=== PATIENT | female | born 1945 | race Caucasian/White ===

== ENCOUNTER 2017-10-09 12:26 | Inpatient (IN) | payer MEDICARE, MEDICAID ==
[~2017-10-09] VITALS: Ht 157.5 cm; Wt 111.4 kg
[~2017-10-09 12:26] MED LIST: ADV50250 IH; HYDR25TA4 PO; IMD30T PO; LOP25T PO; MAGN400C PO; NITR0.4T51 SL; POTA20TA19 PO; SERT25TA PO
[2017-10-09] MEDS ORDERED: nitroGLYCERIN 0.4mg SUBLingual tab SL PRN ×2 (12:50→15:50)
[2017-10-09] MEDS ORDERED: aspirin 325mg tablet PO ONE (12:50)
[2017-10-09 13:08] LABS: BASOPHILS % (AUTO) 0.4 % (0-1); EOSINOPHILS # (AUTO) 0.2 X10'3 (0-0.9); HEMATOCRIT 40.4 % (35.0-45.0); HEMOGLOBIN 14.1 g/dl (12.0-16.0); LYMPHOCYTES # (AUTO) 2.9 X10'3 (1.1-4.8); LYMPHOCYTES % (AUTO) 36.4 % (21-51); MEAN CORPUSCULAR HEMOGLOBIN 33.8 PG (27.0-31.0); MEAN CORPUSCULAR VOLUME 96.6 FL (78-98); MEAN PLATELET VOLUME 5.8 FL (7.4-10.4); MONOCYTES # (AUTO) 0.6 X10'3 (0-0.9); MONOCYTES % (AUTO) 7.3 % (2-12); NEUTROPHILS # (AUTO) 4.2 X10'3 (1.8-7.7); NEUTROPHILS % (AUTO) 53.9 % (42-75); PLATELET COUNT 202 X10'3 (140-440); RED BLOOD COUNT 4.18 X10'6 (4.20-5.60); RED CELL DISTRIBUTION WIDTH 13.7 % (11.5-14.5); WHITE BLOOD COUNT 7.9 X10'3 (4.5-11.0)
[2017-10-09 13:23] LABS: ALANINE AMINOTRANSFERASE 20 U/L (12-78); ALBUMIN 3.1 G/DL (3.4-5.0); ALBUMIN/GLOBULIN RATIO 0.8 (1.1-1.5); ALKALINE PHOSPHATASE 180 IU/L (46-116); ANION GAP 7 (8-16); ASPARTATE AMINO TRANSFERASE 43 U/L (10-37); BILIRUBIN,TOTAL 1.3 MG/DL (0.1-1.0); BLOOD UREA NITROGEN 12 MG/DL (7-18); BUN/CREATININE RATIO 17.4 (6.6-38.0); CALCIUM 8.7 MG/DL (8.5-10.1); CHLORIDE 106 MMOL/L (99-107); CREATININE 0.69 MG/DL (0.40-0.90); GLUCOSE 90 MG/DL (70-104); MAGNESIUM 1.4 MG/DL (1.5-2.4); POTASSIUM 3.5 MMOL/L (3.5-5.1); SODIUM 142 MMOL/L (135-145); TOTAL CARBON DIOXIDE 28.6 MMOL/L (24-32); TOTAL PROTEIN 6.9 G/DL (6.4-8.2); eGFR 84 ML/MIN
[2017-10-09] MEDS ORDERED: metoprolol tartrate 50mg tablet PO ONE (13:30)
[2017-10-09] MEDS ORDERED: isosorbide dinitrate 30mg tablet PO ONE (13:30)
[2017-10-09] MEDS ORDERED: LORazepam 1 MG tablet PO ONE (13:30)
[2017-10-09] MEDS ORDERED: magnesium 2GM in 50ml NS 50 ML IV ONE (13:55)
[2017-10-09] MEDS ORDERED: HYDROcodone/acetaminophen 10/325mg tab PO ONE (15:25)
[2017-10-09] MEDS ORDERED: TRAM50TA2 PO (15:34)
[2017-10-09] MEDS ORDERED: ipratropium/albuterol 3ml nebule NEB PRN (15:50)
[2017-10-09] MEDS ORDERED: acetaminophen 325mg tablet PO PRN (15:50)
[2017-10-09] MEDS ORDERED: ondansetron/PF 4mg/2ml inj IV PRN (15:50)
[2017-10-09] MEDS ORDERED: metoprolol tartrate 1mg/ml inj IV PRN (15:50)
[2017-10-09] MEDS ORDERED: regadenoson 0.4mg/5ml syringe IV ONE (15:50)
[2017-10-09] MEDS ORDERED: magnesium 4gm in 100ml NS 100 ML IV PRN (15:50)
[2017-10-09] MEDS ORDERED: aminophylline 250mg/10ml inj. IV PRN (15:50)
[2017-10-09] MEDS ORDERED: magnesium 2GM in 50ml NS 50 ML IV PRN (15:50)
[2017-10-09] MEDS ORDERED: potassium Cl 40MEQ/NS 500ml 500 ML IV PRN ×2 (15:50)
[2017-10-09] MEDS ORDERED: mag hydrox/Alum hydrox/simeth 30ml oral suspension PO PRN (15:50)
[2017-10-09] MEDS ORDERED: potassium Cl 20 mEq SR tablet PO PRN ×2 (15:50)
[2017-10-09] MEDS ORDERED: magnesium hydroxide 30ml (MOM) UD suspension PO PRN (15:50)
[2017-10-09] MEDS ORDERED: traMADol 50MG tablet PO PRN (16:55)
[2017-10-09] MEDS ORDERED: nitroGLYCERIN 0.4mg SUBLingual tab SL SCH (16:55)
[2017-10-09 17:30] VITALS: BP 141/75
[2017-10-09 19:00] VITALS: BP 117/67
[2017-10-09] MEDS: magnesium oxide 400mg tablet PO SCH (20:00)
[2017-10-09 23:00] VITALS: BP 115/58
[2017-10-10] VITALS (14 sets, daily range): BP systolic 93–131; BP diastolic 45–69
[2017-10-10 01:36] LABS: BASOPHILS # (AUTO) 0.1 X10'3 (0-0.2); BASOPHILS % (AUTO) 0.8 % (0-1); EOSINOPHILS # (AUTO) 0.2 X10'3 (0-0.9); EOSINOPHILS % (AUTO) 3.2 % (0-6); LYMPHOCYTES # (AUTO) 2.9 X10'3 (1.1-4.8); LYMPHOCYTES % (AUTO) 39.6 % (21-51); MONOCYTES # (AUTO) 0.7 X10'3 (0-0.9); NEUTROPHILS # (AUTO) 3.4 X10'3 (1.8-7.7); NEUTROPHILS % (AUTO) 46.4 % (42-75); WHITE BLOOD COUNT 7.3 X10'3 (4.5-11.0)
[2017-10-10 01:45] LABS: ALANINE AMINOTRANSFERASE 21 U/L (12-78); ALBUMIN 2.8 G/DL (3.4-5.0); ALBUMIN/GLOBULIN RATIO 0.7 (1.1-1.5); ALKALINE PHOSPHATASE 171 IU/L (46-116); ANION GAP 7 (8-16); ASPARTATE AMINO TRANSFERASE 38 U/L (10-37); BILIRUBIN,TOTAL 1.3 MG/DL (0.1-1.0); BLOOD UREA NITROGEN 14 MG/DL (7-18); BUN/CREATININE RATIO 19.7 (6.6-38.0); CALCIUM 8.6 MG/DL (8.5-10.1); CHLORIDE 105 MMOL/L (99-107); CREATININE 0.71 MG/DL (0.40-0.90); GLUCOSE 111 MG/DL (70-104); POTASSIUM 3.5 MMOL/L (3.5-5.1); SODIUM 141 MMOL/L (135-145); TOTAL CARBON DIOXIDE 28.8 MMOL/L (24-32); TOTAL PROTEIN 6.6 G/DL (6.4-8.2); eGFR 82 ML/MIN
[2017-10-10 01:48] LABS: CHOL/HDL RATIO 2.1 (0.00-4.99); CHOLESTEROL 165 MG/DL (0-200); HDL CHOLESTEROL 80 MG/DL (35-60); LDL CHOLESTEROL 81 MG/DL (50-100); MAGNESIUM 1.9 MG/DL (1.5-2.4); TRIGLYCERIDES 58 MG/DL (20-135)
[2017-10-10] MEDS ORDERED: enoxaparin 40mg/0.4ml syringe SQ SCH (08:00)
[2017-10-10] MEDS: K and/or MAG REPLACEMENT MC SCH (08:00)
[2017-10-10] MEDS: isosorbide mononitrate 30mg tab.SR.24H PO SCH ×2 (08:00→12:40)
[2017-10-10] MEDS: metoprolol tartrate 25mg tablet PO SCH (08:19)
[2017-10-10] MEDS: magnesium oxide 400mg tablet PO SCH ×2 (08:19→20:00)
[2017-10-10] MEDS: sertraline 50mg tablet PO SCH (08:19)
[2017-10-10] MEDS ORDERED: regadenoson 0.4mg/5ml syringe IV ONE (08:33)
[2017-10-10] MEDS ORDERED: aminophylline inj. 0 ML IV ONE (08:33)
[2017-10-10 09:41] LABS: HEMATOCRIT 38.8 % (35.0-45.0); HEMOGLOBIN 13.4 g/dl (12.0-16.0); RED BLOOD COUNT 3.99 X10'6 (4.20-5.60)
[2017-10-10 09:42] LABS: MEAN CORPUSCULAR VOLUME 97.3 FL (78-98)
[2017-10-10 09:43] LABS: MEAN CORPUSCULAR HEMOGLOBIN 33.5 PG (27.0-31.0); MEAN CORPUSCULAR HGB CONC 34.5 % (33.0-36.5); RED CELL DISTRIBUTION WIDTH 13.8 % (11.5-14.5)
[2017-10-10 09:44] LABS: MEAN PLATELET VOLUME 6.2 FL (7.4-10.4); PLATELET COUNT 191 X10'3 (140-440)
[2017-10-10] MEDS ORDERED: LIDOcaine 1%/PF (10mg/ml) 5ml vial ONE (14:09)
[2017-10-10] MEDS ORDERED: heparin 1,000 UNITS/NS 500ml 500 ML ONE (14:09)
[2017-10-10] MEDS ORDERED: iohexol 350MG/ML 100ml bottle IV ONE (14:09)
[2017-10-10] MEDS ORDERED: fentaNYL/PF 50MCG/1 ML 2ML syringe ONE (14:09)
[2017-10-10] MEDS ORDERED: midazolam 2 mg/2 ml injection ONE (14:10)
[2017-10-10] MEDS ORDERED: heparin 1,000unit/ml 10ml vial 10 ML ONE (14:11)
[2017-10-10] MEDS ORDERED: proCHLORperazine 10 MG/2 ml inj IV PRN (16:45)
[2017-10-10] MEDS ORDERED: HYDROcodone/acetaminophen 10/325mg tab PO PRN (16:45)
[2017-10-10] MEDS ORDERED: HYDROcodone/acetaminophen 5mg/325mg tablet PO PRN (16:45)
[2017-10-10] MEDS ORDERED: normal saline 1000ml 1,000 ML IV SCH (16:45)
[2017-10-10] MEDS ORDERED: OXAZEpam 15mg capsule PO PRN (16:45)
[2017-10-11 05:13] LABS: BASOPHILS % (AUTO) 0.7 % (0-1); EOSINOPHILS # (AUTO) 0.3 X10'3 (0-0.9); EOSINOPHILS % (AUTO) 5.5 % (0-6); HEMATOCRIT 37.2 % (35.0-45.0); HEMOGLOBIN 12.9 g/dl (12.0-16.0); LYMPHOCYTES # (AUTO) 2.7 X10'3 (1.1-4.8); LYMPHOCYTES % (AUTO) 43.5 % (21-51); MEAN CORPUSCULAR HEMOGLOBIN 33.5 PG (27.0-31.0); MEAN CORPUSCULAR HGB CONC 34.6 % (33.0-36.5); MEAN PLATELET VOLUME 6.4 FL (7.4-10.4); MONOCYTES # (AUTO) 0.6 X10'3 (0-0.9); MONOCYTES % (AUTO) 8.8 % (2-12); NEUTROPHILS # (AUTO) 2.6 X10'3 (1.8-7.7); NEUTROPHILS % (AUTO) 41.5 % (42-75); PLATELET COUNT 179 X10'3 (140-440); RED BLOOD COUNT 3.83 X10'6 (4.20-5.60); RED CELL DISTRIBUTION WIDTH 13.9 % (11.5-14.5); WHITE BLOOD COUNT 6.3 X10'3 (4.5-11.0)
[2017-10-11 05:46] LABS: ALANINE AMINOTRANSFERASE 22 U/L (12-78); ALBUMIN 2.6 G/DL (3.4-5.0); ALBUMIN/GLOBULIN RATIO 0.7 (1.1-1.5); ALKALINE PHOSPHATASE 171 IU/L (46-116); ANION GAP 4 (8-16); ASPARTATE AMINO TRANSFERASE 35 U/L (10-37); BILIRUBIN,TOTAL 0.9 MG/DL (0.1-1.0); BLOOD UREA NITROGEN 14 MG/DL (7-18); BUN/CREATININE RATIO 17.9 (6.6-38.0); CALCIUM 8.8 MG/DL (8.5-10.1); CHLORIDE 109 MMOL/L (99-107); CREATININE 0.78 MG/DL (0.40-0.90); GLUCOSE 118 MG/DL (70-104); MAGNESIUM 1.7 MG/DL (1.5-2.4); POTASSIUM 3.7 MMOL/L (3.5-5.1); SODIUM 143 MMOL/L (135-145); TOTAL CARBON DIOXIDE 29.9 MMOL/L (24-32); TOTAL PROTEIN 6.3 G/DL (6.4-8.2); eGFR 73 ML/MIN
[2017-10-11] MEDS: K and/or MAG REPLACEMENT MC SCH (07:01)
[2017-10-11 08:17] VITALS: BP 116/60
[2017-10-11] MEDS: sertraline 50mg tablet PO SCH (08:25)
[2017-10-11] MEDS: magnesium oxide 400mg tablet PO SCH (08:25)
[2017-10-11] MEDS: metoprolol tartrate 25mg tablet PO SCH (08:25)
[2017-10-11] MEDS: isosorbide mononitrate 30mg tab.SR.24H PO SCH (08:25)
[2017-10-11 11:39] VITALS: BP 115/60
== END 2017-10-11 12:13 | disposition home or self-care (01) | DRG 287 ==
LOC: ER 12:26 → SUR 3N 15:56
PROVIDERS: ADMIT Family Medicine; ATTEND Family Medicine
PROC: B32T1ZZ Computerized Tomography (CT Scan) of Left Pulmonary Artery using Low Osmolar Contrast (ICD-10-PCS; principal; 2017-10-09)
PROC: B32S1ZZ Computerized Tomography (CT Scan) of Right Pulmonary Artery using Low Osmolar Contrast (ICD-10-PCS; 2017-10-09)
PROC: 4A023N7 Measurement of Cardiac Sampling and Pressure, Left Heart, Percutaneous Approach (ICD-10-PCS; 2017-10-10)
PROC: 4A02XM4 Measurement of Cardiac Total Activity, External Approach (ICD-10-PCS; 2017-10-10)
PROC: 3E033HZ Introduction of Radioactive Substance into Peripheral Vein, Percutaneous Approach (ICD-10-PCS; 2017-10-10)
PROC: B2111ZZ Fluoroscopy of Multiple Coronary Arteries using Low Osmolar Contrast (ICD-10-PCS; 2017-10-10)
PROC: B2151ZZ Fluoroscopy of Left Heart using Low Osmolar Contrast (ICD-10-PCS; 2017-10-10)
DX: R07.89 Other chest pain (principal); E66.01 Morbid (severe) obesity due to excess calories; Z68.41 Body mass index [BMI] 40.0-44.9, adult; F32.9 Major depressive disorder, single episode, unspecified; I08.0 Rheumatic disorders of both mitral and aortic valves; I10 Essential (primary) hypertension; I25.10 Atherosclerotic heart disease of native coronary artery without angina pectoris; I25.2 Old myocardial infarction; I65.29 Occlusion and stenosis of unspecified carotid artery; J45.909 Unspecified asthma, uncomplicated; M54.9 Dorsalgia, unspecified; R51 Headache; M94.0 Chondrocostal junction syndrome [Tietze]; G89.29 Other chronic pain; Z96.652 Presence of left artificial knee joint; Z90.49 Acquired absence of other specified parts of digestive tract; Z90.710 Acquired absence of both cervix and uterus; Z98.1 Arthrodesis status; Z98.61 Coronary angioplasty status; Z88.5 Allergy status to narcotic agent; Z79.899 Other long term (current) drug therapy; Z82.49 Family history of ischemic heart disease and other diseases of the circulatory system
CPT/HCPCS: 36415; 71045; 71275; 78452; 80053; 80061; 83735; 83880; 84484; 85025; 87070; 93005; 93306; 93458; 94640; 94760; 96365; 99152; 99285; A4620; A6257; A9500; C1760; C1769; J0280; J1644; J1650; J2001; J2250; J2270; J2785; J3010; J3475; J7030; Q9967

== ENCOUNTER 2018-01-16 14:09 | Outpatient (CLI) | payer MEDICARE, MEDICAID ==
[~2018-01-16 14:09] MED LIST changes: -HYDR25TA4 PO; +TRAM50TA2 PO
[2018-01-16 14:21] VITALS: BP 156/80
== END 2018-01-16 15:00 | disposition home or self-care (01) ==
LOC: ORTHO 14:09
PROVIDERS: ATTEND Nurse Practitioner Family
DX: S92.355A Nondisplaced fracture of fifth metatarsal bone, left foot, initial encounter for closed fracture (principal); L89.621 Pressure ulcer of left heel, stage 1; E66.01 Morbid (severe) obesity due to excess calories; G89.29 Other chronic pain; I10 Essential (primary) hypertension; I25.10 Atherosclerotic heart disease of native coronary artery without angina pectoris; J45.909 Unspecified asthma, uncomplicated; Z88.5 Allergy status to narcotic agent; Z90.710 Acquired absence of both cervix and uterus; X58.XXXA Exposure to other specified factors, initial encounter; Y93.89 Activity, other specified; Y92.89 Other specified places as the place of occurrence of the external cause; Y99.8 Other external cause status
CPT/HCPCS: 99213

== ENCOUNTER 2018-01-30 11:21 | Outpatient (CLI) | payer MEDICARE, MEDICAID | END 2018-01-30 12:10 | disposition home or self-care (01) | LOC: ORTHO 11:21 | PROVIDERS: ATTEND Nurse Practitioner Family | DX: S92.355G Nondisplaced fracture of fifth metatarsal bone, left foot, subsequent encounter for fracture with delayed healing (principal); L89.611 Pressure ulcer of right heel, stage 1; I25.10 Atherosclerotic heart disease of native coronary artery without angina pectoris; I10 Essential (primary) hypertension; J45.909 Unspecified asthma, uncomplicated; G89.29 Other chronic pain; X58.XXXD Exposure to other specified factors, subsequent encounter | CPT/HCPCS: 99212 ==

== ENCOUNTER 2018-02-06 14:57 | Outpatient (CLI) | payer MEDICARE, MEDICAID | END 2018-02-06 15:43 | disposition home or self-care (01) | LOC: ORTHO 14:57 | PROVIDERS: ATTEND Nurse Practitioner Family | DX: S92.355D Nondisplaced fracture of fifth metatarsal bone, left foot, subsequent encounter for fracture with routine healing (principal); I10 Essential (primary) hypertension; G89.29 Other chronic pain; I25.10 Atherosclerotic heart disease of native coronary artery without angina pectoris; J45.909 Unspecified asthma, uncomplicated; Z88.5 Allergy status to narcotic agent; X58.XXXD Exposure to other specified factors, subsequent encounter | CPT/HCPCS: 73630; 99213 ==

== ENCOUNTER 2018-02-27 14:31 | Outpatient (CLI) | payer MEDICARE, MEDICAID ==
[2018-02-27 14:39] VITALS: BP 151/86
== END 2018-02-27 15:14 | disposition home or self-care (01) ==
LOC: ORTHO 14:31
PROVIDERS: ATTEND Nurse Practitioner Family
DX: S92.355G Nondisplaced fracture of fifth metatarsal bone, left foot, subsequent encounter for fracture with delayed healing (principal); G89.29 Other chronic pain; I10 Essential (primary) hypertension; I25.10 Atherosclerotic heart disease of native coronary artery without angina pectoris; J45.909 Unspecified asthma, uncomplicated; Z88.5 Allergy status to narcotic agent; X58.XXXD Exposure to other specified factors, subsequent encounter
CPT/HCPCS: 73630; 99213

== ENCOUNTER 2018-03-20 14:59 | Outpatient (CLI) | payer MEDICARE, MEDICAID ==
[2018-03-20 15:28] VITALS: BP 133/71
== END 2018-03-20 15:46 | disposition home or self-care (01) ==
LOC: ORTHO 14:59
PROVIDERS: ATTEND Nurse Practitioner Family
DX: S92.352G Displaced fracture of fifth metatarsal bone, left foot, subsequent encounter for fracture with delayed healing (principal); I10 Essential (primary) hypertension; I25.10 Atherosclerotic heart disease of native coronary artery without angina pectoris; J44.9 Chronic obstructive pulmonary disease, unspecified; Z88.8 Allergy status to other drugs, medicaments and biological substances; X58.XXXD Exposure to other specified factors, subsequent encounter
CPT/HCPCS: 73630; 99213

== ENCOUNTER 2018-04-12 10:43 | Outpatient (CLI) | payer MEDICARE, MEDICAID ==
[2018-04-12 10:50] VITALS: BP 148/75
== END 2018-04-12 11:20 | disposition home or self-care (01) ==
LOC: ORTHO 10:43
PROVIDERS: ATTEND Nurse Practitioner Family
DX: S92.355D Nondisplaced fracture of fifth metatarsal bone, left foot, subsequent encounter for fracture with routine healing (principal); I10 Essential (primary) hypertension; I25.10 Atherosclerotic heart disease of native coronary artery without angina pectoris; J44.9 Chronic obstructive pulmonary disease, unspecified; Z88.8 Allergy status to other drugs, medicaments and biological substances; X58.XXXD Exposure to other specified factors, subsequent encounter
CPT/HCPCS: 73630; 99213

== ENCOUNTER 2018-11-23 18:05 | Inpatient (IN) | payer MEDICARE, MEDICAID | END 2018-11-27 13:13 | disposition home or self-care (01) | LOC: ER 18:05 → SUR 3N 11-24 05:20 → ED HOLD 22:36 | DX: J20.9 Acute bronchitis, unspecified (principal); J44.0 Chronic obstructive pulmonary disease with (acute) lower respiratory infection; K74.60 Unspecified cirrhosis of liver; E83.119 Hemochromatosis, unspecified; E87.6 Hypokalemia ==

== ENCOUNTER 2019-01-09 11:05 | Emergency (ER) | payer MEDICARE, MEDICAID ==
[~2019-01-09] VITALS: Ht 157.5 cm; Wt 125.0 kg
[~2019-01-09 11:05] MED LIST changes: -ADV50250 IH; +ALLO100T PO; +ATOR20TA PO; +BENZ-16 PO; +FURO-150 PO; -IMD30T PO; -LOP25T PO; -MAGN400C PO; +METO-467 PO; -NITR0.4T51 SL; +OXYB5TAB11 PO; +POTA10TA19 PO; -POTA20TA19 PO; +SERT100T10 PO; -SERT25TA PO; +SYN0.088T PO; -TRAM50TA2 PO
[2019-01-09 12:41] LABS: BASOPHILS # (AUTO) 0.1 X10'3 (0-0.2); BASOPHILS % (AUTO) 0.7 % (0-1); EOSINOPHILS # (AUTO) 0.1 X10'3 (0-0.9); EOSINOPHILS % (AUTO) 1.5 % (0-6); HEMATOCRIT 37.9 % (35.0-45.0); HEMOGLOBIN 12.9 g/dl (12.0-16.0); LYMPHOCYTES # (AUTO) 2.5 X10'3 (1.1-4.8); MEAN CORPUSCULAR HEMOGLOBIN 32.7 PG (27.0-31.0); MEAN CORPUSCULAR VOLUME 96.2 FL (78-98); MEAN PLATELET VOLUME 6.9 FL (7.4-10.4); MONOCYTES # (AUTO) 0.9 X10'3 (0-0.9); MONOCYTES % (AUTO) 11.9 % (2-12); NEUTROPHILS # (AUTO) 4.3 X10'3 (1.8-7.7); NEUTROPHILS % (AUTO) 54.9 % (42-75); PLATELET COUNT 229 X10'3 (140-440); RED BLOOD COUNT 3.93 X10'6 (4.20-5.60); WHITE BLOOD COUNT 7.9 X10'3 (4.5-11.0)
[2019-01-09 12:49] LABS: ALANINE AMINOTRANSFERASE 42 U/L (12-78); ALBUMIN 2.8 G/DL (3.4-5.0); ALBUMIN/GLOBULIN RATIO 0.8 (1.1-1.5); ALKALINE PHOSPHATASE 265 IU/L (46-116); ANION GAP 4 (8-16); ASPARTATE AMINO TRANSFERASE 93 U/L (10-37); BLOOD UREA NITROGEN 11 MG/DL (7-18); BUN/CREATININE RATIO 11.6 (6.6-38.0); CALCIUM 8.3 MG/DL (8.5-10.1); CHLORIDE 103 MMOL/L (99-107); CREATININE 0.95 MG/DL (0.40-0.90); GLUCOSE 102 MG/DL (70-104); SODIUM 140 MMOL/L (135-145); TOTAL CARBON DIOXIDE 32.6 MMOL/L (24-32); TOTAL PROTEIN 6.2 G/DL (6.4-8.2); eGFR 58 ML/MIN
[2019-01-09 13:03] LABS: POTASSIUM 2.9 MMOL/L (3.5-5.1)
[2019-01-09] MEDS ORDERED: FURO40TA4 PO (13:22)
[2019-01-09] MEDS ORDERED: LEVO50TA8 PO (13:22)
[2019-01-09] MEDS ORDERED: OXYB5TAB PO (13:22)
[2019-01-09] MEDS ORDERED: FURO-149 PO (13:38)
[2019-01-09] MEDS ORDERED: METO25TA6 PO (13:38)
[2019-01-09] MEDS ORDERED: ALBU6.7H INH (13:38)
[2019-01-09] MEDS: potassium 10mEq/100ml NS w/LIDOcaine (10mg/bag) IV SCH ×2 (13:44→14:45)
[2019-01-09 16:47] VITALS: BP 102/64
== END 2019-01-09 16:48 | disposition home or self-care (01) ==
LOC: ER 11:05
DX: R07.89 Other chest pain (principal); E87.6 Hypokalemia; I25.10 Atherosclerotic heart disease of native coronary artery without angina pectoris; I10 Essential (primary) hypertension; J45.909 Unspecified asthma, uncomplicated; G89.29 Other chronic pain; Z90.49 Acquired absence of other specified parts of digestive tract; Z90.710 Acquired absence of both cervix and uterus; Z98.890 Other specified postprocedural states; Z88.5 Allergy status to narcotic agent; Z79.899 Other long term (current) drug therapy
CPT/HCPCS: 36415; 71045; 80053; 83880; 84484; 85025; 93005; 96365; 96366; 99284; J3480

== ENCOUNTER 2019-01-25 15:58 | Emergency (ER) | payer MEDICARE, MEDICAID ==
[~2019-01-25] VITALS: Ht 157.5 cm; Wt 118.0 kg
[~2019-01-25 15:58] MED LIST changes: +ALBU6.7H INH; -BENZ-16 PO; +FURO-149 PO; -FURO-150 PO; +FURO40TA4 PO; +LEVO50TA8 PO; -METO-467 PO; +METO25TA6 PO; +OXYB5TAB PO; -OXYB5TAB11 PO; -SYN0.088T PO
[2019-01-25] MEDS ORDERED: nitroGLYCERIN 0.4mg SUBLingual tab SL PRN (17:25)
[2019-01-25] MEDS ORDERED: aspirin 81mg tab.chew PO ONE (17:25)
[2019-01-25 17:55] LABS: BASOPHILS % (AUTO) 0.4 % (0-1); EOSINOPHILS % (AUTO) 0 % (0-6); HEMATOCRIT 34.2 % (35.0-45.0); HEMOGLOBIN 12.2 g/dl (12.0-16.0); LYMPHOCYTES # (AUTO) 1.7 X10'3 (1.1-4.8); LYMPHOCYTES % (AUTO) 18.2 % (21-51); MEAN CORPUSCULAR HEMOGLOBIN 34.4 PG (27.0-31.0); MEAN CORPUSCULAR HGB CONC 35.7 g/dL (33.0-36.5); MEAN CORPUSCULAR VOLUME 96.4 FL (78-98); MEAN PLATELET VOLUME 6.3 FL (7.4-10.4); MONOCYTES # (AUTO) 0.9 X10'3 (0-0.9); MONOCYTES % (AUTO) 10.1 % (2-12); NEUTROPHILS # (AUTO) 6.6 X10'3 (1.8-7.7); NEUTROPHILS % (AUTO) 71.3 % (42-75); PLATELET COUNT 261 X10'3 (140-440); RED BLOOD COUNT 3.55 X10'6 (4.20-5.60); RED CELL DISTRIBUTION WIDTH 15.3 % (11.5-14.5); WHITE BLOOD COUNT 9.3 X10'3 (4.5-11.0)
[2019-01-25 18:09] LABS: ALANINE AMINOTRANSFERASE 32 U/L (12-78); ALBUMIN 2.6 G/DL (3.4-5.0); ALBUMIN/GLOBULIN RATIO 0.7 (1.1-1.5); ALKALINE PHOSPHATASE 245 IU/L (46-116); ANION GAP 9 (8-16); ASPARTATE AMINO TRANSFERASE 79 U/L (10-37); BILIRUBIN,TOTAL 1.8 MG/DL (0.1-1.0); BLOOD UREA NITROGEN 11 MG/DL (7-18); BUN/CREATININE RATIO 11.1 (6.6-38.0); CALCIUM 8.9 MG/DL (8.5-10.1); CHLORIDE 103 MMOL/L (99-107); CREATININE 0.99 MG/DL (0.40-0.90); GLUCOSE 113 MG/DL (70-104); POTASSIUM 3.2 MMOL/L (3.5-5.1); SODIUM 140 MMOL/L (135-145); TOTAL CARBON DIOXIDE 27.9 MMOL/L (24-32); TOTAL PROTEIN 6.3 G/DL (6.4-8.2); eGFR 55 ML/MIN
[2019-01-25 18:10] LABS: INR 1.2 INR; PARTIAL THROMBOPLASTIN TIME 29 SECONDS (22-32)
[2019-01-25] MEDS ORDERED: ipratropium/albuterol 3ml nebule NEB ONE (18:25)
[2019-01-25] MEDS ORDERED: magnesium oxide 400mg tablet PO ONE (18:25)
[2019-01-25] MEDS ORDERED: potassium Cl 20 mEq SR tablet PO ONE (18:25)
[2019-01-25] MEDS ORDERED: methylPREDNISolone sod succ 125mg/2ml vial IV ONE (18:30)
[2019-01-25 18:56] LABS: MAGNESIUM 1.2 MG/DL (1.5-2.4)
[2019-01-25] MEDS ORDERED: magnesium 2GM in 50ml NS 50 ML IV ONE (19:50)
[2019-01-25] MEDS ORDERED: MAGN400C PO (19:55)
[2019-01-25] MEDS ORDERED: AZIT-63 PO (19:55)
[2019-01-25] MEDS ORDERED: azithromycin 250mg tablet PO ONE (19:55)
[2019-01-25] MEDS ORDERED: albuterol 2.5 MG/3 ML nebule NEB ONE (19:55)
[2019-01-25] MEDS ORDERED: PRED20TA PO (20:21)
[2019-01-25 20:59] VITALS: BP 105/58
== END 2019-01-25 21:01 | disposition home or self-care (01) ==
LOC: ER 15:59
DX: J44.1 Chronic obstructive pulmonary disease with (acute) exacerbation (principal); E87.6 Hypokalemia; E83.42 Hypomagnesemia; I11.0 Hypertensive heart disease with heart failure; I50.9 Heart failure, unspecified; G89.29 Other chronic pain; I25.10 Atherosclerotic heart disease of native coronary artery without angina pectoris; Z90.49 Acquired absence of other specified parts of digestive tract; Z90.710 Acquired absence of both cervix and uterus; Z98.890 Other specified postprocedural states; Z88.5 Allergy status to narcotic agent; Z79.899 Other long term (current) drug therapy
CPT/HCPCS: 36415; 71045; 80053; 83735; 84484; 85025; 85610; 85730; 93005; 94640; 94760; 96365; 96375; 99284; J2930; J3475

== ENCOUNTER 2019-02-13 11:30 | Observation (INO) | payer MEDICARE, MEDICAID ==
[~2019-02-13] VITALS: Ht 157.5 cm; Wt 111.0 kg
[~2019-02-13 11:30] MED LIST changes: +AZIT-63 PO; +MAGN400C PO; +PRED20TA PO
[2019-02-13 12:07] LABS: BASOPHILS # (AUTO) 0.1 X10'3 (0-0.2); BASOPHILS % (AUTO) 0.9 % (0-1); EOSINOPHILS # (AUTO) 0.1 X10'3 (0-0.9); EOSINOPHILS % (AUTO) 1.6 % (0-6); HEMATOCRIT 36.7 % (35.0-45.0); HEMOGLOBIN 12.4 g/dl (12.0-16.0); LYMPHOCYTES # (AUTO) 2.5 X10'3 (1.1-4.8); LYMPHOCYTES % (AUTO) 26.8 % (21-51); MEAN CORPUSCULAR HEMOGLOBIN 31.8 PG (27.0-31.0); MEAN CORPUSCULAR HGB CONC 33.7 g/dL (33.0-36.5); MEAN CORPUSCULAR VOLUME 94.1 FL (78-98); MEAN PLATELET VOLUME 6.6 FL (7.4-10.4); MONOCYTES # (AUTO) 1.1 X10'3 (0-0.9); MONOCYTES % (AUTO) 11.6 % (2-12); NEUTROPHILS # (AUTO) 5.5 X10'3 (1.8-7.7); NEUTROPHILS % (AUTO) 59.1 % (42-75); PLATELET COUNT 211 X10'3 (140-440); RED CELL DISTRIBUTION WIDTH 15.1 % (11.5-14.5); WHITE BLOOD COUNT 9.3 X10'3 (4.5-11.0)
[2019-02-13 12:17] LABS: INR 1.1 INR; PARTIAL THROMBOPLASTIN TIME 28 SECONDS (22-32)
[2019-02-13 12:22] LABS: ALANINE AMINOTRANSFERASE 22 U/L (12-78); ALBUMIN 2.6 G/DL (3.4-5.0); ALBUMIN/GLOBULIN RATIO 0.7 (1.1-1.5); ALKALINE PHOSPHATASE 195 IU/L (46-116); ANION GAP 4 (8-16); ASPARTATE AMINO TRANSFERASE 31 U/L (10-37); BILIRUBIN,TOTAL 1.4 MG/DL (0.1-1.0); BLOOD UREA NITROGEN 19 MG/DL (7-18); BUN/CREATININE RATIO 24.1 (6.6-38.0); CALCIUM 9.3 MG/DL (8.5-10.1); CHLORIDE 102 MMOL/L (99-107); CREATININE 0.79 MG/DL (0.40-0.90); GLUCOSE 106 MG/DL (70-104); POTASSIUM 3.7 MMOL/L (3.5-5.1); SODIUM 137 MMOL/L (135-145); TOTAL PROTEIN 6.1 G/DL (6.4-8.2); eGFR 72 ML/MIN
[2019-02-13 13:47] LABS: % IRON SATURATION 25 % (11-46); IRON 60 UG/DL (49-151); TOTAL IRON BINDING CAPACITY 237 UG/DL (259-388)
[2019-02-13 13:55] LABS: CHOL/HDL RATIO 2.2 (0.00-4.99); CHOLESTEROL 129 MG/DL (0-200); FERRITIN 75 NG/ML (8-252); HDL CHOLESTEROL 58 MG/DL (35-60); LDL CHOLESTEROL 69 MG/DL (50-100); TRIGLYCERIDES 62 MG/DL (20-135)
[2019-02-13] MEDS ORDERED: POTA10TA15 PO (14:03)
[2019-02-13] MEDS ORDERED: SPIR25TA5 PO (14:09)
[2019-02-13] MEDS ORDERED: MAGN400T6 PO (14:10)
[2019-02-13] MEDS ORDERED: mag hydrox/Alum hydrox/simeth 30ml oral suspension PO PRN (14:40)
[2019-02-13] MEDS ORDERED: acetaminophen 325mg tablet PO PRN (14:40)
[2019-02-13] MEDS ORDERED: morphine 2 MG/ML inj. syringe IV PRN ×2 (14:40)
[2019-02-13] MEDS ORDERED: magnesium hydroxide 30ml (MOM) UD suspension PO PRN (14:40)
[2019-02-13] MEDS ORDERED: magnesium 2GM in 50ml NS 50 ML IV PRN (14:40)
[2019-02-13] MEDS ORDERED: magnesium 4gm in 100ml NS 100 ML IV PRN (14:40)
[2019-02-13] MEDS ORDERED: magnesium Cl slow-release 64mg tablet PO PRN (14:40)
[2019-02-13] MEDS ORDERED: potassium Cl 20 mEq SR tablet PO PRN ×2 (14:40)
[2019-02-13] MEDS ORDERED: potassium Cl 40MEQ/NS 500ml 500 ML IV PRN ×2 (14:40)
[2019-02-13] MEDS ORDERED: bisacodyl 10mg suppository rectal RC PRN (14:40)
[2019-02-13] MEDS ORDERED: ondansetron/PF 4mg/2ml inj IV PRN (14:40)
[2019-02-13] MEDS ORDERED: aminophylline 250mg/10ml inj. IV PRN (14:45)
[2019-02-13] MEDS ORDERED: metoprolol tartrate 1mg/ml inj IV PRN (14:45)
[2019-02-13] MEDS ORDERED: nitroGLYCERIN 0.4mg SUBLingual tab SL PRN ×2 (14:45)
[2019-02-13] MEDS ORDERED: regadenoson 0.4mg/5ml syringe IV ONE (14:45)
--- NOTE | 2019-02-13 15:00 | NUR ---
RECD REPORT FROM JORGE BURGESS.
[2019-02-13 15:14] VITALS: BP 126/62
[2019-02-13] MEDS: pantoprazole 40 MG vial IV SCH (15:36)
[2019-02-13] MEDS: aspirin 325mg tablet, delayed-release (Ecotrin) PO SCH (15:36)
--- NOTE | 2019-02-13 18:02 | NUR ---
Received report from ADITYA Jeffrey. Patient is awake and alert on room air, in no apparent distress. Call light and items of frequent use within reach. Will continue to monitor.
--- NOTE | 2019-02-13 18:12 | NUR ---
Problems reprioritized. Patient report given, questions answered & plan of care reviewed with NATE BURGESS. Addendum: 02/13/19 at 1813 by Arelis Reece RN DISREGARD NOTE, WRONG NURSE
--- NOTE | 2019-02-13 18:13 | NUR ---
Problems reprioritized. Patient report given, questions answered & plan of care reviewed with TONIA BURGESS.
[2019-02-13] MEDS: docusate sod 100mg capsule PO SCH (19:18)
[2019-02-13] MEDS: oxybutynin 5mg tablet PO SCH (19:19)
[2019-02-13] MEDS: metoprolol tartrate 25mg tablet PO SCH (19:22)
[2019-02-13] MEDS: heparin, porcine 5000 units/ml vial SQ SCH (19:29)
[2019-02-13 20:00] VITALS: BP 118/64
[2019-02-13] MEDS ORDERED: non-formulary drug (Potassium Chloride 2 TAB) PO SCH (21:00)
[2019-02-13] MEDS ORDERED: atorvastatin 20mg tablet PO SCH (21:00)
[2019-02-13] MEDS ORDERED: potassium chloride 10mEq ER tablet PO SCH (21:00)
[2019-02-13] MEDS ORDERED: furosemide 40mg tablet PO SCH (21:00)
[2019-02-13] MEDS ORDERED: non-formulary drug (Atorvastatin Calcium (Lipitor) 1 TAB) PO SCH (21:00)
[2019-02-14] VITALS (13 sets, daily range): BP systolic 93–118; BP diastolic 44–74
[2019-02-14 05:08] LABS: ALANINE AMINOTRANSFERASE 23 U/L (12-78); ALBUMIN 2.5 G/DL (3.4-5.0); ALBUMIN/GLOBULIN RATIO 0.7 (1.1-1.5); ALKALINE PHOSPHATASE 195 IU/L (46-116); ANION GAP 7 (8-16); ASPARTATE AMINO TRANSFERASE 36 U/L (10-37); BILIRUBIN,TOTAL 2.2 MG/DL (0.1-1.0); BLOOD UREA NITROGEN 16 MG/DL (7-18); CALCIUM 8.7 MG/DL (8.5-10.1); CHLORIDE 100 MMOL/L (99-107); CHOL/HDL RATIO 2.2 (0.00-4.99); CHOLESTEROL 120 MG/DL (0-200); GLUCOSE 94 MG/DL (70-104); HDL CHOLESTEROL 55 MG/DL (35-60); LDL CHOLESTEROL 61 MG/DL (50-100); MAGNESIUM 1.7 MG/DL (1.5-2.4); POTASSIUM 3.9 MMOL/L (3.5-5.1); SODIUM 136 MMOL/L (135-145); TOTAL PROTEIN 6.2 G/DL (6.4-8.2); TRIGLYCERIDES 46 MG/DL (20-135); eGFR 71 ML/MIN
--- NOTE | 2019-02-14 06:25 | NUR ---
Patient in room [facility]. I have received report from ADITYA Espinoza and had the opportunity to ask questions and assume patient care.
--- NOTE | 2019-02-14 06:30 | NUR ---
Problems reprioritized. Patient report given, questions answered & plan of care reviewed with ADITYA Augustin.
[2019-02-14] MEDS ORDERED: levoTHYROXINE 25mcg tablet PO SCH (07:00)
[2019-02-14] MEDS: docusate sod 100mg capsule PO SCH (07:23)
[2019-02-14] MEDS: aspirin 325mg tablet, delayed-release (Ecotrin) PO SCH (07:24)
[2019-02-14] MEDS: oxybutynin 5mg tablet PO SCH (07:25)
[2019-02-14] MEDS: pantoprazole 40 MG vial IV SCH (07:28)
[2019-02-14] MEDS: metoprolol tartrate 25mg tablet PO SCH (07:28)
[2019-02-14] MEDS: heparin, porcine 5000 units/ml vial SQ SCH (07:29)
[2019-02-14] MEDS ORDERED: furosemide 40mg tablet PO SCH (08:00)
[2019-02-14] MEDS ORDERED: POTASSIUM CHLORIDE PO SCH (08:00)
[2019-02-14] MEDS ORDERED: K and/or MAG REPLACEMENT MC SCH (08:00)
[2019-02-14] MEDS ORDERED: sertraline 50mg tablet PO SCH (08:00)
[2019-02-14] MEDS ORDERED: non-formulary drug (Oxybutynin Chloride (Ditropan Xl) 1 TAB) PO SCH (08:00)
[2019-02-14] MEDS ORDERED: potassium chloride 10mEq ER tablet PO SCH (08:00)
[2019-02-14] MEDS ORDERED: non-formulary drug (Sertraline HCl 1 TAB) PO SCH (08:00)
[2019-02-14] MEDS ORDERED: allopurinol 100mg tablet PO SCH (08:00)
[2019-02-14] MEDS ORDERED: spironolactone 25 MG tablet PO SCH (08:00)
[2019-02-14] MEDS ORDERED: non-formulary drug (Levothyroxine Sodium 1 TAB) PO SCH (08:00)
[2019-02-14] MEDS ORDERED: magnesium oxide 400mg tablet PO SCH (08:00)
[2019-02-14] MEDS ORDERED: LIDOcaine 5% patch TP ONE (09:15)
[2019-02-14] MEDS ORDERED: regadenoson 0.4mg/5ml syringe IV ONE (10:07)
[2019-02-14] MEDS ORDERED: aminophylline inj. 10 ML IV ONE (10:07)
[2019-02-14] MEDS ORDERED: NITR0.4T51 SL (13:24)
[2019-02-14] MEDS ORDERED: PANT40TA4 PO (13:24)
[2019-02-14] MEDS ORDERED: LIDOcaine 5% patch TP SCH (13:25)
[2019-02-14] MEDS ORDERED: LIDO700A47 TP (13:30)
--- NOTE | 2019-02-14 15:45 | NUR ---
Patient discharged home via family and taken from unit via wheelchair with x1 staff. PIV removed with canula intact and tele monitor removed. Appointment to follow up with elevator pilot made for patient of MondayFebruary 18 at 1015. Patient given contact information, address and date and time of appointment. Patient alert oriented and in no apparent distress at time of discharge. Patient given discharge instructions with time for questions and answers, patient stated an understanding of instructions. [facility], delivered new patient medications.
[2019-02-15] MEDS ORDERED: pantoprazole 40mg Tablet.DR PO SCH (07:30)
== END 2019-02-14 15:50 | disposition home or self-care (01) ==
LOC: ER 11:30 → ED HOLD 14:45 → SUR 3N 14:53 → CMPBEDREQ 19:34
PROVIDERS: ADMIT Internal Medicine; ATTEND Internal Medicine
DX: R07.89 Other chest pain (principal); K29.70 Gastritis, unspecified, without bleeding; I25.10 Atherosclerotic heart disease of native coronary artery without angina pectoris; I11.0 Hypertensive heart disease with heart failure; I50.9 Heart failure, unspecified; E83.119 Hemochromatosis, unspecified; K74.60 Unspecified cirrhosis of liver; E03.9 Hypothyroidism, unspecified; E78.5 Hyperlipidemia, unspecified; I24.9 Acute ischemic heart disease, unspecified; J45.909 Unspecified asthma, uncomplicated; Z79.82 Long term (current) use of aspirin; Z79.899 Other long term (current) drug therapy; Z90.49 Acquired absence of other specified parts of digestive tract; Z90.710 Acquired absence of both cervix and uterus
CPT/HCPCS: 36415; 71045; 78452; 80053; 80061; 82728; 83540; 83550; 83735; 84484; 85025; 85610; 85730; 87070; 93005; 93017; 93306; 96372; 96374; 96375; 96376; 99284; A9500; C9113; G0378; J0280; J1644; J2270